=== PATIENT | female | born 1995 | race Caucasian/White ===

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

== ENCOUNTER 2017-06-09 10:44 | Emergency (ER) | payer BC ==
[2017-06-09 11:39] VITALS: BP 120/60
--- NOTE | 2017-06-09 12:26 | UC ---
Complaint Female HPI - HPI Summary HPI Summary: PT IS C/O GENTITAL "SORES" AND FEVER FOR ABOUT 2 DAYS. ADMITS TO DISCOMFORT WITH URINATION FROM SORES BUT DENIES ANY DISCHARGE, FREQUENCY, URGENCY WITH URINATION. HAS HAD CONTACT WITH A NEW SEXUAL PARTNED. PT IS FEMALE AND IS TRANSITIONING TO MALE. IDENTIFIES MALE. DENIES ABDOMINAL PAIN N/V/D. - History Of Current Complaint Chief Complaint: UCGeneralIllness Stated Complaint: PERSONAL Time Seen by Provider: 06/09/17 11:32 Hx Obtained From: Patient Onset/Duration: Gradual Onset Timing: Constant Pain Intensity: 8 Aggravating Factor(s): Nothing Alleviating Factor(s): Other - FEVER TX [employer] Associated Signs And Symptoms: Positive: Fever, Genital Blisters. Negative: Vaginal Bleeding/Discharge, Vaginal Discharge, Nausea, Vomiting(# Of Episodes =) - Risk Factors Ectopic Risk Factor: Negative Ovarian Torsion Risk Factor: Negative - Allergies/Home Medications Allergies/Adverse Reactions: Allergies Allergy/AdvReac Type Severity Reaction Status Date / Time No Known Allergies Allergy Verified 06/09/17 11:30 Home Medications: Home Medications Acetaminophen 650 mg PO ONCE PRN 06/09/17 [History Confirmed 06/09/17] Testosterone Cypionate [Depo-Testosterone] 50 mg IM WEEKLY 06/09/17 [History Confirmed 06/09/17] PMH/Surg Hx/FS Hx/Imm Hx - Additional Past Medical History Additional PMH: FEMALE TRANSITIONING TO MALE, TAKING HORMONES ONLY THUS FAR. Previously Healthy: Yes - Surgical History Surgical History: None - Family History Known Family History: Negative: Blood Disorder - Social History Lives: With Family Alcohol Use: Occasionally Substance Use Type: None Smoking Status (MU): Never Smoked Tobacco Have You Smoked in the Last Year: No - Immunization History Vaccination Up to Date: Yes Review of Systems Constitutional: Fever Skin: Negative Eyes: Negative ENT: Negative Respiratory: Negative Cardiovascular: Negative Gastrointestinal: Negative Genitourinary: Ulceration/Lesion Motor: Negative Neurovascular: Negative Musculoskeletal: Negative Neurological: Negative Psychological: Negative Is Patient Immunocompromised?: No All Other Systems Reviewed And Are Negative: Yes Physical Exam Triage Information Reviewed: Yes Appearance: Well-Appearing Vital Signs: Initial Vital Signs Temp 99 F 06/09/17 11:32 Pulse 106 06/09/17 11:32 Resp 22 06/09/17 11:32 BP 120/60 06/09/17 11:32 Pulse Ox 100 06/09/17 11:32 Vital Signs Reviewed: Yes Eyes: Positive: Conjunctiva Clear ENT: Positive: Pharynx normal, TMs normal. Negative: Nasal congestion, Nasal drainage Neck: Positive: Supple, Nontender, No Lymphadenopathy Respiratory: Positive: Lungs clear, Normal breath sounds, No respiratory distress Cardiovascular: Positive: RRR, No Murmur, Pulses Normal Abdomen Description: Positive: Nontender, No Organomegaly, Soft. Negative: CVA Tenderness (R), CVA Tenderness (L), Distended, Guarding Bowel Sounds: Positive: Present Musculoskeletal: Positive: ROM Intact Neurological: Positive: Alert Psychological: Positive: Normal Response To Family, Age Appropriate Behavior Skin Exam: Normal Skin: Positive: Other - : external inferior genital area is inflammed and has mucoid materil. also, 3 ulcerations on L and R is red. Vagina is pink with mucoid material but not lesions, os closed, cultures obtained. No cmt or mass and not tender on bimanual exam. Diagnostics - Laboratory Diagnostic Studies Completed/Ordered: pelvic/herpes cultures plus urine culture pending. Complaint Female Dx - Course Course Of Treatment: GC & chlamydia plus herpes cultures are pending. will tx for presumptive herpes. pt advised of dx and tx plan. [facility] but refer to [facility] as well. no concern for acute abdomen, no overt PID. urine with blodd and leuks, likely from local sores; however, culture pending with no tx for that at this time. - Differential Dx/Diagnosis Provider Diagnoses: Genital herpes Discharge - Discharge Plan Condition: Stable Disposition: HOME Prescriptions: Famciclovir TAB(NF) [Famvir TAB(NF)] 250 mg PO TID 7 Days #21 tab Patient Education Materials: Genital Herpes Simplex (ED), Sexually Transmitted Diseases in Adolescents (ED) [facility]errals: [facility], [Z.CONVERSION PROVIDER TYPE] - 5 Days Tegan MelendezTegan [Medical Doctor] - As Soon As Possible
--- NOTE | 2017-06-10 15:56 | UC ---
- Progress Note Progress Note: please call the pt. with the lab results + Chlamydia will ERx Zithromax 1000 mg x once please have her partner be seen for tx
== END 2017-06-09 14:03 | disposition home or self-care (01) ==
LOC: EDSEX 10:44 → UCCORT 10:44
DX: A60.00 Herpesviral infection of urogenital system, unspecified (principal); N39.0 Urinary tract infection, site not specified; B95.1 Streptococcus, group B, as the cause of diseases classified elsewhere; A74.9 Chlamydial infection, unspecified
CPT/HCPCS: 81003; 87077; 87086; 87491; 87529; 87591; 99212; G0463